=== PATIENT | female | born 2005 | race Hispanic/Latino ===

== ENCOUNTER → 2025-03-23 | Day surgery (SDC) | payer OTHER ==
[2025-03-20 10:25] LABS: BASOPHILS % 0.7 % (0.0-1.0); EOSINOPHILS % 2.0 % (0.0-6.0); LYMPHOCYTES % 29.4 % (18.0-39.1); MONOCYTES % 6.5 % (4.4-11.3); NEUTROPHILS % 61.1 % (38.7-80.0); RED CELL DISTRIBUTION WIDTH 13.2 % (11.7-14.4)
[2025-03-20 10:52] LABS: EST GLOMERULAR FILTRATION RATE 130.0 ML/MIN (>=60)
[2025-03-20 10:57] LABS: INR 0.96
[~2025-03-23] MED LIST: FENTANYL CITRATE/PF 100MCG/2 ML INJ ONE; FIBER GUMMIES PO; FIBER TABS625 MG PO; KETAMINE HCL INJ 50 MG/ML 10 ML VIAL ONE; LIDOCAINE HCL 2% LOCAL INJ 5 ML SDV VIAL INJ ONE; MELATONIN3 MG PO; MIDAZOLAM HCL 2 MG/2 ML VIAL ONE; MIRALAX17 GM PO; ONDANSETRON HCL INJ 2MG/ML 2ML 2 MG/ML VIAL ONE; PROPOFOL IV EMULSION 50 ML IV ONE
[2025-03-23] MEDS: LACTATED RINGER'S 1,000 ML ONE (06:13)
[2025-03-23 08:01] VITALS: TEMP 98.7
[2025-03-23 08:30] VITALS: BP 108/61; PULSE 83; RESP 16; O2SAT 98
== END | disposition home or self-care (01) ==
LOC: OR 05:56
PROVIDERS: ATTEND Internal Medicine Gastroenterology
DX: I85.00 Esophageal varices without bleeding (principal); K76.6 Portal hypertension; K31.89 Other diseases of stomach and duodenum; K44.9 Diaphragmatic hernia without obstruction or gangrene; J45.909 Unspecified asthma, uncomplicated; F41.9 Anxiety disorder, unspecified; Z01.812 Encounter for preprocedural laboratory examination; Z68.27 Body mass index [BMI] 27.0-27.9, adult
CPT/HCPCS: 36415; 43239; 80053; 81025; 85025; 85610; 85730; J2003; J2250; J2405; J2470; J2704; J3010; J7121